=== PATIENT | female | born 1970 | race Hispanic/Latino ===

== ENCOUNTER 2021-09-07 23:02 | Emergency (ER) | payer OTHER, SELFPAY ==
[2021-09-07 23:05] VITALS: BP 155/94; PULSE 98; RESP 20; TEMP 36.5; O2SAT 98
[2021-09-08 02:37] VITALS: BP 133/85; PULSE 79; TEMP 36.5; O2SAT 97
--- NOTE | 2021-09-08 05:36 | ED.LOWEXIN ---
HPI - Extremity Injury (Lower) General Chief Complaint: Extremity Injury, Lower Stated Complaint: bilateral knee, foot pain Time Seen by Provider: 09/08/21 04:10 History of Present Illness HPI Narrative: Patient is a 50-year-old female who presents ER with bilateral knee pain. Ongoing for 2 years. It is worse when she is walking on at work. She has been on meloxicam and other anti-inflammatories. They help but do not fully take away her pain. She has had x-rays in the past that showed no issues. No fevers or chills or sweats. No redness or swelling. No recent trauma. No numbness or tingling to lower extremities. Review of Systems Constitutional: Constitutional: Denies chills and Denies fever(s) Musculoskeletal: Musculoskeletal: Denies myalgias, Reports arthralgias, Denies joint swelling and Denies muscle cramps Neurologic: Denies focal weakness and Denies numbness PMFSH Past Medical History Medical History (Updated 09/08/21 @ 19:51 by Harshad Pittman MD) Healthy female adult Surgical History Surgical History (Updated 09/08/21 @ 19:51 by Harshad Pittman MD) No pertinent past surgical history Exam Narrative: GENERAL: Well-appearing, well-nourished, and in no acute distress. HEAD: Normocephalic, atraumatic.. EXTREMITIES: Normal range of motion. No edema. No joint effusion. No tenderness to the knees bilaterally. No tenderness of the C. SKIN: Warm, dry, no rash. NEURO: No focal deficits. Alert and oriented x3. PSYCH: Normal mood and affect. Course Course Emergency Course: Not much else to offer given patient's head previous imaging with no new changes in her discomfort with an normal exam. Recommend follow-up with Ortho as they may be able provide her steroid injections of the joint space for her chronic pain. Vital Signs Vital signs: Vital Signs Temperature 97.7 F 09/07/21 23:05 Pulse Rate 98 09/07/21 23:05 Respiratory Rate 20 09/07/21 23:05 Blood Pressure 155/94 H 09/07/21 23:05 Pulse Oximetry 98 09/07/21 23:05 Oxygen Delivery Room Air 09/07/21 23:05 Temperature 97.7 F 09/08/21 02:37 Pulse Rate 79 09/08/21 05:55 Respiratory Rate 18 09/08/21 05:55 Blood Pressure 148/91 H 09/08/21 05:55 Pulse Oximetry 98 09/08/21 05:55 Oxygen Delivery Room Air 09/07/21 23:05 Discharge Plan Discharge Clinical Impression: Chronic knee pain Patient Disposition: Home, Self-Care Condition: Stable Instructions: Knee Pain (ED) Additional Instructions: Return to the ER if your knee is red and hot, you have fever over 100.4 ?F, you have chest pain or shortness of breath, you have additional concerns. Follow-up with orthopedic surgery for further evaluation to see if she may benefit from joint injections. Follow-up/Referrals: Greg,Nicole Abebe MD [Primary Care Provider] - Robert Witt MD [Physician] - 1 Week
[2021-09-08 05:55] VITALS: BP 148/91; PULSE 79; RESP 18; O2SAT 98
== END 2021-09-08 05:56 | disposition home or self-care (01) ==
PROVIDERS: Emergency Provider Emergency Medicine; PCP Internal Medicine
DX: M25.562 Pain in left knee (principal); M25.561 Pain in right knee; G89.29 Other chronic pain
CPT/HCPCS: 99281

== ENCOUNTER 2022-03-25 15:04 | Outpatient (CLI) | payer OTHER, SELFPAY ==
--- NOTE | ~2022-03-25 | XR_ITS ---
EXAMINATION: XR foot RT min 3V, XR foot LT min 3V DATE: 03/25/2022 15:38 INDICATION: Plantar fascial fibromatosis TECHNIQUE: 1. Weight bearing dorsoplantar, two oblique and lateral views of the left foot were obtained. 2. Weightbearing dorsoplantar, two oblique and lateral views of the right foot were obtained. COMPARISON: None. FINDINGS: Normal alignment at the bilateral feet. No fracture. Relatively symmetric mild polyarticular osteoart hritis at the tarsal metatarsal, metatarsophalangeal and interphalangeal joints. No erosions to sugge st inflammatory arthritis. Soft tissues are unremarkable. IMPRESSION: 1. Mild polyarticular osteoarthritis in the bilateral mid and forefeet. Reviewed, dictated and finalized at location B. RVISOR PAINT IMPRESSION: 1. Mild polyarticular osteoarthritis in the bilateral mid and forefeet.
== END 2022-03-25 15:05 | disposition home or self-care (01) ==
LOC: ANHIMG 15:09
PROVIDERS: PCP Emergency Medicine; Visit Provider Podiatrist Foot & Ankle Surgery
DX: M72.2 Plantar fascial fibromatosis (principal); E11.40 Type 2 diabetes mellitus with diabetic neuropathy, unspecified; M19.072 Primary osteoarthritis, left ankle and foot; M19.071 Primary osteoarthritis, right ankle and foot
CPT/HCPCS: 73630

== ENCOUNTER 2022-06-28 20:19 | Observation (INO) | payer OTHER, SELFPAY ==
--- NOTE | ~2022-06-28 | XR_ITS ---
EXAMINATION: XR chest 2V Exam Date/Time: 06/28/2022 20:23 CDT HISTORY: CP, SOB, DIZZINESS, WEAKNESS Comparison: None available. RESULT: Lines, tubes, and devices: None. Lungs and pleura: Clear. Cardiomediastinal silhouette: Dilated central pulmonary arteries as can be seen with pulmonary arter ial hypertension. Otherwise normal cardiomediastinal silhouette. Other: No acute osseous or upper abdominal finding. IMPRESSION: No acute cardiopulmonary process. Reviewed, dictated and finalized at location K.
--- NOTE | ~2022-06-28 | US_ITS ---
EXAMINATION: US abdomen limited DATE: 06/29/2022 14:47 INDICATION: Abnormal liver function tests. TECHNIQUE: Multiple grayscale and Doppler ultrasound images of the abdomen were obtained. COMPARISON: CT abdomen 03/08/2007 FINDINGS: The visualized portions of the head, body, and tail of the pancreas are normal. The liver i s normal without focal lesion. No liver surface nodularity. There is normal flow in main portal vein. The gallbladder is normal in size. No gallstones or gallbladder wall thickening. There is no sonogra phic Warren sign. The common duct is normal and measures 5 mm. IMPRESSION: 1. Normal right upper quadrant ultrasound. Reviewed, dictated and finalized at location A.
--- NOTE | ~2022-06-28 | NM_ITS ---
EXAMINATION: NM lora stress w perfusion DATE: 06/29/2022 13:06 INDICATION: Chest pain. TECHNIQUE: Rest images were obtained following intravenous administration of 10.4 mCi Tc99m tetrofosm in (Myoview). The patient was infused intravenously with Lexiscan (regadenoson). Then, 34.6 mCi Tc99m tetrofosmin (Myoview) was administered intravenously, and stress images were obtained. Data was nikos nstructed into short axis and horizontal and vertical long axis SPECT images. Gated SPECT images were also obtained. COMPARISON: None. FINDINGS: There is no definite reversible or fixed perfusion abnormality to suggest ischemia or infar ction. There is no segmental wall motion abnormality. Left ventricular ejection fraction measures > 70%. IMPRESSION: 1. No definite ischemia or infarct. 2. Normal left ventricular ejection fraction measuring >70%. Reviewed, dictated and finalized at location A.
[2022-06-28 20:16] VITALS: BP 137/87; PULSE 106; RESP 12; TEMP 36.6; O2SAT 99
--- NOTE | 2022-06-28 20:21 | ECG_ITS ---
Measurements Intervals [place] Rate: 98 P: 52 OR: 182 QRS: 45 QRSD: 88 T: 94 QT: 286 QTc: 366 Interpretive Statements SINUS RHYTHM NONSPECIFIC ST & T-WAVE ABNORMALITY- DIFFUSE LEADS BASELINE ARTIFACT- I, II, III, AVR, AVL, AVF BORDERLINE ECG NO PREVIOUS ECG AVAILABLE FOR COMPARISON Electronically Signed On 06-28-2022 21:27:17 CDT by Minor Benz D.O.
[2022-06-28 20:30] LABS: Basophils Absolute Auto 0.1 K/mm3 (0.0-0.1); Basophils Percent Auto 1.1 % (0.2-1.2); Eosinophils Absolute Auto 0.1 K/mm3 (0-0.3); Eosinophils Percent Auto 1.3 % (0-4.4); Hematocrit 40.3 % (37.0-47.0); Hemoglobin 14.1 g/dL (12.0-15.0); Immature Granulocyte Absolute 0.03 K/mm3 (0.00-0.031); Immature Granulocyte Percent A 0.4 % (0-0.5); Lymphocytes Absolute Auto 1.85 K/mm3 (0.9-3.2); Lymphocytes Percent Auto 26.5 % (18.3-44.2); Mean Corpuscular Volume 88.6 fl (80-100); Mean Platelet Volume 11.2 fl (7.4-10.4); Monocytes Absolute Auto 0.3 K/mm3 (0.1-0.6); Monocytes Percent Auto 4.6 % (2.6-8.5); Neutrophils Absolute Auto 4.6 K/mm3 (1.3-6.7); Neutrophils Percent Auto 66.1 % (45.5-73.1); Platelet Count Result 194 k/mm3 (150-375); Red Blood Count 4.55 M/mm3 (4.2-5.4); Red Cell Distribution Width 11.7 % (11.5-14.5)
[2022-06-28 20:40] LABS: Prothrombin Time 13.2 Seconds (11.1-14.7)
[2022-06-28 20:41] LABS: Alanine Aminotransferase 37 U/L (6-35); Albumin Level 5.5 g/dL (3.5-5.1); Alkaline Phosphatase 107 U/L (38-126); Anion Gap 10 mmol/L (8-16); Aspartate Amino Transferase 45 U/L (14-36); Bilirubin,Total 0.9 mg/dL (0.2-1.3); Blood Urea Nitrogen 16 mg/dL (7-17); Calcium 9.7 mg/dL (8.4-10.2); Carbon Dioxide 29 mmol/L (22-30); Chloride 98 mmol/L (98-107); Estimated CRCL calculation 79 ml/min; Estimated Glomerular Filt Rate > 60; Glucose 232 mg/dL (65-110); Lipase 131 U/L (23-300); Partial Thromboplastin Time 27.6 SECONDS (22.3-36.8); Potassium 3.2 mmol/L (3.4-5.0); Sodium 137 mmol/L (137-145)
[2022-06-28 20:53] LABS: Troponin I < 0.012 ng/mL (0.000-0.034)
[2022-06-28 21:27] LABS: D Dimer < 0.27 ug/mL (<0.48)
[2022-06-28 22:01] VITALS: BP 114/73; PULSE 92; RESP 19; O2SAT 96
--- NOTE | 2022-06-28 22:03 | PC.NURSE ---
Patient states chest pain has resolved.
--- NOTE | 2022-06-28 22:06 | ED.CHESTPAIN ---
HPI - Chest Pain General Chief Complaint: Chest Pain <Humza Frye PA-C - Last Filed: 06/29/22 02:45> Stated Complaint: CP, HTN, SALEEM <TERRENCE Youssef Last Filed: 06/29/22 02:45> Time Seen by Provider: 06/28/22 20:45 <TERRENCE Youssef Last Filed: 06/29/22 02:45> Source: patient <TERRENCE Youssef Last Filed: 06/29/22 02:45> Mode of arrival: ambulatory <TERRENCE Youssef Last Filed: 06/29/22 02:45> Limitations: no limitations <TERRENCE Youssef Last Filed: 06/29/22 02:45> History of Present Illness HPI narrative: This is a 51-year-old female with PMH of HTN, DM type II who presents to the ED with chief complaint of severe chest pain onset suddenly this afternoon while at work. 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 States the pain is in the central chest and makes clenched fist when describing the pressure. States pain does not radiate. Denies nausea or sweats. Endorses some shortness of breath during onset but none now. Reports pain was a 10 out of 10 but now is a 3 out of 10. Per EMS, she was having elevated pressures in the 200s, received 324 of aspirin and 2 rounds of nitro and still had some elevated pressures above 180. States her chest pain largely resolved after the second nitro in the ambulance. <TERRENCE Youssef Last Filed: 06/29/22 02:45> Related Data Home Medications: Home Medications Medication Instructions Recorded Confirmed amitriptyline 25 mg tablet 25 mg PO HS 06/29/22 06/29/22 atorvastatin 40 mg tablet 40 mg PO DAILY 06/29/22 06/29/22 carvedilol 3.125 mg tablet 3.125 mg PO BID 06/29/22 06/29/22 irbesartan 300 mg tablet 300 mg PO DAILY 06/29/22 06/29/22 levothyroxine 112 mcg tablet 112 mcg PO DAILY 06/29/22 06/29/22 metformin 500 mg tablet,extended 500 mg PO DAILY PRN Hyperglycemia 06/29/22 06/29/22 release 24 hr sitagliptin phosphate 100 mg 100 mg PO DAILY 06/29/22 06/29/22 tablet (Januvia) <Humza Frye PA-C - Last Filed: 06/29/22 02:45> Allergies/Adverse Reactions: Allergies Allergy/AdvReac Type Severity Reaction Status Date / Time No Known Allergies Allergy Unknown Unverified 09/13/21 16:26 <Humza Frye PA-C - Last Filed: 06/29/22 02:45> Review of Systems Review of Systems: CONSTITUTIONAL: Denies fever, chills, or sweats. EYES: Denies visual changes, redness, or discharge. ENT: Denies rhinorrhea, congestion, sore throat, or otalgia. CARDIOVASCULAR: See HPI RESPIRATORY: See HPI GASTROINTESTINAL: Denies abdominal pain, nausea, vomiting, or diarrhea. GENITOURINARY: Denies dysuria or hematuria. SKIN: Denies rash or itching. MUSCULOSKELETAL: Denies back pain, joint pain, or myalgia. NEUROLOGIC: Denies headache, numbness, dizziness, or weakness. PSYCHIATRIC: Denies anxiety or depression. <Humza Frye PA-C - Last Filed: 06/29/22 02:45> [facility] Past Medical History Medical History: Medical History (Updated 06/29/22 @ 00:46 by Humza Frye PA-C) Healthy female adult <Humza Frye PA-C - Last Filed: 06/29/22 02:45> Surgical History Surgical History: Surgical History (System 09/13/21 @ 16:26 by Arnol Rios) No pertinent past surgical history <Humza Frye PA-C - Last Filed: 06/29/22 02:45> Social History Social History: Social History (System 09/13/21 @ 16:26 by Arnol Rios) Smoking status: Never smoker Second hand tobacco smoke exposure: No Alcohol intake: never Substance use: never Lack of Transportation: No Lack of Food: Never True Current Housing: I Have Housing Concerned About Future Housing: No Difficulty Paying Gas/Electric Bills: No Difficulty Paying for Meds: No Currently Unemployed: No Education: High School Diploma/GED Difficulty w/ Childcare or Family Care: No Spiritual care concerns: No <Humza Frye PA-C - Last Filed: 06/29/22 02:45> Exam Narrative: GENERAL: Well-appearing, well-nourished. Appears anxious. No clari
[2022-06-28 23:30] VITALS: BP 139/89; PULSE 79; RESP 14; O2SAT 99
[2022-06-29] VITALS (12 sets, daily range): BP systolic 121–175; BP diastolic 68–79; PULSE 72–96; RESP 16–18; TEMP 36.3–36.5; O2SAT 97–100; BMI 27.8
--- NOTE | 2022-06-29 | EST_ITS ---
Patient Info Name: Mohini Mcclelland Age: 51 years : 1970 Gender: Female Ht: 60 in Wt: 140 lbs BSA: 1.66 m2 HR: 89 bpm BP: 134 / 82 mmHg Heart Rhythm: Sinus Rhythm Exam Date: 06/29/2022 11:59 AM Exam Location: [facility] Stress Patient Status: Inpatient Admit Date: 06/29/2022 Staff Ordering Physician: Yvan Smith MD Attending Provider: Reyes Lamar M.A., MD Exercise Technologist: Xi Alvarado CT Exercise Physician: Yvan Smith MD Exam Type: CA stress lora w NM Study Info Indications R07.89 - Other chest pain A regadenoson stress test was performed. Summary 1. Non-diagnostic ECG response due to resting abnormalities. 2. Please correlate with nuclear medicine images, reported separately. Protocol: Lexiscan Stress ECG Details Stage: REST Duration (min): 0 min : 58 sec HR (bpm): 88 SBP (mmHg): 134 DBP (mmHg): 82 Stage: REST Duration (min): 3 min : 14 sec HR (bpm): 91 SBP (mmHg): 134 DBP (mmHg): 82 Stage: STAGE 1 Duration (min): 1 min : 0 sec HR (bpm): 126 SBP (mmHg): 137 DBP (mmHg): 96 Stage: RECOVERY Duration (min): 1 min : 0 sec HR (bpm): 124 SBP (mmHg): 137 DBP (mmHg): 96 Stage: RECOVERY Duration (min): 2 min : 0 sec HR (bpm): 115 SBP (mmHg): 137 DBP (mmHg): 96 Stage: RECOVERY Duration (min): 3 min : 0 sec HR (bpm): 109 SBP (mmHg): 137 DBP (mmHg): 78 Stage: RECOVERY Duration (min): 3 min : 14 sec HR (bpm): 111 SBP (mmHg): 137 DBP (mmHg): 78 Rest HR: 91 bpm Peak HR: 127 bpm Rest Sys BP: 134 mmHg Peak Sys BP: 137 mmHg Max Pred HR: 170 bpm % Max Pred HR: 75 % Target HR: 145 bpm Max RPP: 17,399 bpm*mmHg Total Time: 1 min : 0 sec Rest Brooks BP: 82 mmHg Peak Brooks BP: 96 mmHg Total Dose: 0.4 mg Resting ECG Sinus rhythm. Baseline nonspecific ST and T wave abnormality. Stress ECG Sinus tachycardia. Non-diagnostic ECG response due to resting abnormalities. Report Signatures
[2022-06-29 00:26] LABS: Troponin I < 0.012 ng/mL (0.000-0.034)
--- NOTE | 2022-06-29 00:42 | PM.IMHP ---
H&P: HPI History of Present Illness Date/Time: 06/29/22 00:42 Chief Complaint: 51 years old female with past medical history of hyperlipidemia hypertension diabetes mellitus presented to the hospital with chest pressure started today no radiation in the center of the chest improved with aspirin and 2 rounds of nitro associated with elevated blood pressure patient was brought to the hospital by her blood pressure was above 200 systolic improved to 180 after 2 rounds of sublingual nitro patient still complaining of mild chest pressure ECG showed nonspecific changes troponin was normal chest x-ray was normal patient has been mildly abnormal LFT has hypokalemia admitted to the hospital for further evaluation and treatment of hypertensive urgency associated with chest pain Review of Systems Review of Systems: Twelve system review was done negative except above [facility] Past Medical History Medical History (Updated 06/29/22 @ 00:46 by Humza Frye PA-C) Healthy female adult Surgical History Surgical History (System 09/13/21 @ 16:26 by Arnol Rios) No pertinent past surgical history Meds Home Medications and Allergies Allergies Allergy/AdvReac Type Severity Reaction Status Date / Time No Known Allergies Allergy Unknown Unverified 09/13/21 16:26 Vital Signs Vital Signs - 24 hr 06/28/22 20:16 06/28/22 22:01 Temperature 97.9 F Pulse Rate 106 H 92 Respiratory Rate 12 19 Blood Pressure 137/87 114/73 Pulse Oximetry 99 96 Oxygen Delivery Room Air Exam Narrative: GENERAL: Well appearing, well-nourished, non-toxic, in no acute distress. HEAD: Normocephalic, atraumatic. NECK: Supple. No adenopathy, no masses. RESPIRATORY: Airway patent, respirations nonlabored. Clear to auscultation bilaterally, no rales, rhonchi, wheezing. CARDIOVASCULAR: Regular rate and rhythm without murmurs, rubs, or gallops. Peripheral pulses 2+ and equal bilaterally. ABDOMINAL: Soft, nontender, nondistended, no hepatosplenomegaly. Normoactive BS. MUSCULOSKELETAL: Moves all extremities. Strength/ROM intact without gross deformities or TTP. No edema. No calf tenderness. No chest wall tenderness palpation. SKIN: Warm, dry, normal color. No rashes. NEURO: A&O X3. Speech clear. Cranial nerves II-XII grossly intact. Steady gait. No ataxic movements. PSYCHIATRIC: Appropriate mood and affect. Normal interaction. H&P: Results Labs Labs: Short CBC 06/28/22 Range/Units 20:24 WBC 7.0 (4.5-10.0) K/mm3 Hgb 14.1 (12.0-15.0) g/dL Hct 40.3 (37.0-47.0) % Plt Count 194 (150-375) k/mm3 BMP 06/28/22 20:24 Sodium 137 Potassium 3.2 L Chloride 98 Carbon Dioxide 29 BUN 16 Creatinine 0.60 L Glucose 232 H Calcium 9.7 Cardiac Enzymes 06/28/22 06/28/22 Range/Units 20:24 23:59 Troponin I < 0.012 < 0.012 (0.000-0.034) ng/mL Liver Function 06/28/22 Range/Units 20:24 Total Bilirubin 0.9 (0.2-1.3) mg/dL AST 45 H (14-36) U/L ALT 37 H (6-35) U/L Alkaline Phosphatase 107 (38-126) U/L Albumin 5.5 H (3.5-5.1) g/dL Assessment and Plan Assessment and plan (1) Chest pain: Code(s): R07.9 - Chest pain, unspecified Status: Acute Assessment and Plan: Rule out ACS serial cardiac marker ECG cardiology consult Aspirin Coreg nitro paste 1 dose of therapeutic Lovenox Pending cardiology evaluation in a.m. reorder to continue Lovenox if needed once cardiology evaluated the patient (2) Hypertensive urgency: Code(s): I16.0 - Hypertensive urgency Status: Acute Assessment and Plan: Status post sublingual nitro Added Coreg nitro paste and p.r.n. IV hydralazine (3) Acute hypokalemia: Code(s): E87.6 - Hypokalemia Status: Acute Assessment and Plan: Replaced (4) Diabetes mellitus: Code(s): E11.9 - Type 2 diabetes mellitus without complications Status: Acute Assessment and Plan: Insulin sliding scale Pending
[2022-06-29] MEDS: POTASSIUM CHLORIDE 20 MEQ TABLET 40 MEQ PO (01:15)
[2022-06-29] MEDS: ENOXAPARIN 80 MG/0.8 ML SYRINGE 63 MG SUB-Q (01:16)
[2022-06-29 03:35] LABS: Troponin I < 0.012 ng/mL (0.000-0.034)
--- NOTE | 2022-06-29 03:44 | ADMGEN ---
This patient, Mohini Mcclelland, was admitted to IMU Room 201-01. Patient/family oriented to hospital policies and general routines including ID bracelet, bed and alarms, visiting hours, pain management, procedures, bathroom and other care routines, personal items, smoking policy, room service/diet, and visiting hours. Information on how to activate the Rapid Response Team has been discussed. Patient/Family are encouraged to report perceived risks to care and to ask questions if they do not understand what they are told or what they should do.
[2022-06-29 05:16] LABS: Basophils Absolute Auto 0.1 K/mm3 (0.0-0.1); Basophils Percent Auto 0.9 % (0.2-1.2); Eosinophils Absolute Auto 0.1 K/mm3 (0-0.3); Hematocrit 37.8 % (37.0-47.0); Immature Granulocyte Absolute 0.01 K/mm3 (0.00-0.031); Immature Granulocyte Percent A 0.1 % (0-0.5); Lymphocytes Absolute Auto 2.11 K/mm3 (0.9-3.2); Mean Corpuscular HGB Conc 34.4 g/dl (32-36); Mean Corpuscular Hemoglobin 30.4 pg (26-34); Mean Corpuscular Volume 88.3 fl (80-100); Monocytes Absolute Auto 0.4 K/mm3 (0.1-0.6); Monocytes Percent Auto 5.9 % (2.6-8.5); Neutrophils Absolute Auto 4.2 K/mm3 (1.3-6.7); Neutrophils Percent Auto 61.1 % (45.5-73.1); Platelet Count Result 187 k/mm3 (150-375); Red Blood Count 4.28 M/mm3 (4.2-5.4); Red Cell Distribution Width 11.6 % (11.5-14.5); White Blood Count 6.8 K/mm3 (4.5-10.0)
[2022-06-29 05:21] LABS: Alanine Aminotransferase 32 U/L (6-35); Alkaline Phosphatase 81 U/L (38-126); Anion Gap 8 mmol/L (8-16); Aspartate Amino Transferase 37 U/L (14-36); Bilirubin,Total 0.7 mg/dL (0.2-1.3); Blood Urea Nitrogen 14 mg/dL (7-17); Calcium 9.5 mg/dL (8.4-10.2); Carbon Dioxide 31 mmol/L (22-30); Chloride 102 mmol/L (98-107); Estimated CRCL calculation 94 ml/min; Estimated Glomerular Filt Rate > 60; Glucose 97 mg/dL (65-110); Potassium 3.3 mmol/L (3.4-5.0); Sodium 141 mmol/L (137-145)
[2022-06-29 05:34] LABS: Troponin I < 0.012 ng/mL (0.000-0.034)
[2022-06-29] MEDS: hydrALAZINE HCL 20 MG/ML VIAL 10 MG IV PUSH (06:16)
--- NOTE | 2022-06-29 09:09 | PM.CNCAR ---
Assessment and Plan Assessment and plan (1) Chest pain: Code(s): R07.9 - Chest pain, unspecified Status: Acute Plan 51-year-old female with chest pain that is raising concern regarding ischemic heart disease although there is no objective evidence of ACS despite prolonged episode of symptoms yesterday. Risk factors obviously include hypertension diabetes and dyslipidemia. She has nonspecific T-wave abnormality on her ECG but no significant ischemic findings. Given her negative troponins I would recommend a Lexiscan nuclear stress testing in terms of screening for ischemic heart disease. Those findings will be reviewed later in the day when the test is completed. Obviously significant abnormality will likely triggered angiogram regardless it seems relatively clear that that symptoms with which she presented are unlikely to be ischemic in nature given the fact that she has negative troponins in the face of prolonged symptomatology Yvan Smith MD [facility] History of Present Illness History of Present Illness Consult date/time: 06/29/22 09:09 Reason For Visit: High Risk Chest Pain Narrative: This is a 51-year-old woman I am seeing at the request of the hospitalist because of chest pain. She is unknown to me prior to this encounter. 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 She describes these episodes a something that does bother her from time to time for least a couple of years or so. She attributes this to high blood pressure. She states that when she has the symptoms if she checks her blood pressure will be significantly elevated. She has a diagnosis of chronic hypertension for which she takes medical therapy. When she is not having the symptoms she says she does not have any history of exertional chest pain shortness of breath orthopnea PND or edema. She does carry on a very active lifestyle. She used to exercise for fitness but has had to curtail this activity in the last year or so because of foot pain with plantar fasciitis. She had the symptoms yesterday was brought to the emergency room her electrocardiogram shows sinus rhythm with nonspecific T-wave inversion. She has had 4 troponins samples done which are all normal. Upon walking in the room to see her this morning she is resting in upon awakening feels relatively well she still is having mild discomfort of a much better than it was yesterday morning. In addition to hypertension she has a history of non insulin-dependent diabetes and a history of hypothyroidism. There is no family history of premature coronary artery disease and she is a nonsmoker Review of Systems Constitutional: Constitutional: Reports body ache(s) Eyes: Eyes: Reports no additional eye complaints ENT: Reports system reviewed and no additional complaints, except as documented Cardiovascular: Cardiovascular: Reports as per HPI Respiratory: Respiratory: Reports no additional respiratory complaints Gastrointestinal: Gastrointestinal: Reports no additional gastrointestinal complaints Musculoskeletal: Musculoskeletal: Reports myalgias Integumentary/Breasts: Skin/Breast: Reports system reviewed and no additional complaints, except as docu Neurologic: Reports system reviewed and no additional complaints, except as documented Endocrine: Endocrine: Reports no additional endocrine complaints Hematologic/Lymphatic: Hematologic/Lymphatic: Reports no additional hematologic/lymphatic complaints Allergic/Immunologic: Allergic/Immunologic: Reports no additional allergic/immunologic complaints [facility] Past Medical History Medical History (Updated 06/29/22 @ 00:46 by Humza Frye PA-C) Healthy female adult Surgical History Surgical History (System 09/13/21 @ 16:26 by Arnol Rios) No pertinent past surgical history Social History Social History (System
[2022-06-29] MEDS: IRBESARTAN 150 MG TABLET 300 MG PO (10:20)
[2022-06-29] MEDS: ASPIRIN 81 MG ENTERIC TABLET PO (10:21)
[2022-06-29] MEDS: SIMVASTATIN 20 MG TABLET 40 MG PO (10:21)
[2022-06-29] MEDS: carvediloL 3.125 MG TABLET PO (10:22)
[2022-06-29] MEDS: NITROGLYCERIN OINTMENT 1 INCH DOSE TRANSDERM (10:22)
[2022-06-29] MEDS: PANTOPRAZOLE SODIUM IV 40 MG VIAL IV PUSH (10:23)
--- NOTE | 2022-06-29 15:26 | PM.DS ---
DS: Admitting Diagnosis Discharge Date 06/29/22 Admitting Diagnosis chest pain DS: Discharge Diagnosis Discharge Diagnosis (1) Chest pain: Code(s): R07.9 - Chest pain, unspecified Status: Acute Assessment and Plan: Rule out ACS serial cardiac marker ECG cardiology consult Aspirin Coreg nitro paste 1 dose of therapeutic Lovenox Pending cardiology evaluation in a.m. reorder to continue Lovenox if needed once cardiology evaluated the patient (2) Hypertensive urgency: Code(s): I16.0 - Hypertensive urgency Status: Acute Assessment and Plan: Status post sublingual nitro Added Coreg nitro paste and p.r.n. IV hydralazine (3) Acute hypokalemia: Code(s): E87.6 - Hypokalemia Status: Acute Assessment and Plan: Replaced (4) Diabetes mellitus: Code(s): E11.9 - Type 2 diabetes mellitus without complications Status: Acute Assessment and Plan: Insulin sliding scale Pending home medication reconciliation (5) Hyperlipidemia: Code(s): E78.5 - Hyperlipidemia, unspecified Status: Acute Assessment and Plan: High-dose statin Check lipid panel DS: Summary Hospital Course Hospital Course: 51-year-old female with chest pain that is raising concern regarding ischemic heart disease although there is no objective evidence of ACS despite prolonged episode of symptoms yesterday.? Risk factors obviously include hypertension diabetes and dyslipidemia.? She has nonspecific T-wave abnormality on her ECG but no significant ischemic findings.? Given her negative troponins lexiscan nuclear stress testing was performed and was negative for ischemia. Etiology of her symptoms with thought to be secondary to GERD versus musculoskeletal etiology. She is to discuss this with her family doctor. She was discharged in stable condition with close outpatient follow-up by Cardiology. Time Spent with Patient Time attestation: Total time spent providing and/or coordinating discharge services: DS: Data Data Completed and Pending Labs on day of discharge: Labs from last 24 hours 06/29/22 06/29/22 06/28/22 04:42 03:07 23:59 WBC 6.8 RBC 4.28 Hgb 13.0 Hct 37.8 MCV 88.3 MCH 30.4 MCHC 34.4 RDW 11.6 Plt Count 187 MPV 12.0 H Immature Gran % (Auto) 0.1 Neut % (Auto) 61.1 Lymph % (Auto) 31.0 [place] % (Auto) 5.9 Eos % (Auto) 1.0 Baso % (Auto) 0.9 Lymph # (Auto) 2.11 [place] # (Auto) 0.4 Eos # (Auto) 0.1 Baso # (Auto) 0.1 Abs Immat Gran (auto) 0.01 Absolute Neuts (auto) 4.2 Absolute Nucleated RBC 0.0 Nucleated RBC % 0.0 PT INR APTT D-Dimer Sodium 141 Potassium 3.3 L Chloride 102 Carbon Dioxide 31 H Anion Gap 8 BUN 14 Creatinine 0.50 L Estim Creat Clear Calc 94 Estimated GFR > 60 Glucose 97 Calcium 9.5 Total Bilirubin 0.7 AST 37 H ALT 32 Alkaline Phosphatase 81 Troponin I < 0.012 < 0.012 < 0.012 Total Protein 8.0 Albumin 5.0 Lipase TSH (Reflex) 1.520 06/28/22 20:24 WBC 7.0 RBC 4.55 Hgb 14.1 Hct 40.3 MCV 88.6 MCH 31.0 MCHC 35.0 RDW 11.7 Plt Count 194 MPV 11.2 H Immature Gran % (Auto) 0.4 Neut % (Auto) 66.1 Lymph % (Auto) 26.5 [place] % (Auto) 4.6 Eos % (Auto) 1.3 Baso % (Auto) 1.1 Lymph # (Auto) 1.85 [place] # (Auto) 0.3 Eos # (Auto) 0.1 Baso # (Auto) 0.1 Abs Immat Gran (auto) 0.03 Absolute Neuts (auto) 4.6 Absolute Nucleated RBC 0.0 Nucleated RBC % 0.0 PT 13.2 INR 1.0 APTT 27.6 D-Dimer < 0.27 Sodium 137 Potassium 3.2 L Chloride 98 Carbon Dioxide 29 Anion Gap 10 BUN 16 Creatinine 0.60 L Estim Creat Clear Calc 79 Estimated GFR > 60 Glucose 232 H Calcium 9.7 Total Bilirubin 0.9 AST 45 H ALT 37 H Alkaline Phosphatase 107 Troponin I < 0.012 Total Protein 8.0 Albumin 5.5 H Lipase 131 TSH (Reflex) Discharge Plan Discharge A
[2022-06-29] MEDS: ACETAMINOPHEN 325 MG TABLET 650 MG PO (16:01)
== END 2022-06-29 16:20 | disposition home or self-care (01) ==
LOC: ANHED 06-29 00:46 → ANHIMU 06-29 03:12
PROVIDERS: Emergency Medicine; Admitting Provider Internal Medicine; Emergency Provider Physician Assistant; PCP Physician Assistant; Visit Provider Student in an Organized Health Care Education/Training Program
DX: I16.0 Hypertensive urgency (principal); E87.6 Hypokalemia; E11.9 Type 2 diabetes mellitus without complications; E78.5 Hyperlipidemia, unspecified; I10 Essential (primary) hypertension; R79.89 Other specified abnormal findings of blood chemistry; R94.31 Abnormal electrocardiogram [ECG] [EKG]; R53.1 Weakness; Z79.84 Long term (current) use of oral hypoglycemic drugs; Z79.899 Other long term (current) drug therapy
CPT/HCPCS: 36415; 71046; 76705; 78452; 80053; 83690; 84443; 84484; 85025; 85380; 85610; 85730; 93005; 93017; 96374; 96375; 99285; A9270; A9502; C9113; G0378; J0360; J1650

== ENCOUNTER 2022-11-30 21:20 | Emergency (ER) | payer OTHER, SELFPAY ==
--- NOTE | ~2022-11-30 | CT_ITS ---
CT of the Abdomen and Pelvis: Indication: Abdominal pain Technique: 2.5 mm axial scans were obtained through the abdomen and pelvis following intravenous adm inistration of 100 cc of Omnipaque 350. Dose reduction technique was used on this scan by utilizing a utomated exposure control and iterative reconstruction technique. The dose-length product (DLP) was 3 48.25 mGy-cm. Findings: Scans through the lung bases demonstrate 1.1 cm right lower lobe pulmonary nodule (axial i mage 16). 6 mm hypodense hepatic structure is too small to characterize definitively, but statistically, there is most likely a small cyst or hemangioma (axial image 44). The spleen, pancreas, gallbladder, adrena ls and right kidney are within normal limits. Small nonobstructing left renal stones measuring up to 3 mm. No evidence of aortic aneurysm. No retroperitoneal lymphadenopathy. There is wall thickening of the ascending colon with mild pericolonic inflammatory stranding. Appendi x not clearly visualized. Terminal ileum appears relatively unremarkable. No abscess or free air. No bowel obstruction. There are shotty right lower quadrant lymph nodes. Images through the pelvis were performed. Urinary bladder unremarkable. No adnexal mass evident. Impression: Wall thickening and inflammatory change involving the ascending colon, suspicious for infectious/infl ammatory colitis. No abscess, free air, or bowel obstruction. Appendix not clearly visualized. 1.1 cm right lower lobe pulmonary nodule, indeterminate. According to Fleischner Society criteria, wo uld recommend either 3 month follow-up CT, PET/CT, or tissue sampling. Small nonobstructing left renal stones. Reviewed, dictated and finalized at [facility]. Impression: Wall thickening and inflammatory change involving the ascending colon, suspicio us for infectious/inflammatory colitis. No abscess, free air, or bowel obstruct ion. Appendix not clearly visualized. 1.1 cm right lower lobe pulmonary nodule, indeterminate. According to Fleischne r Society criteria, would recommend either 3 month follow-up CT, PET/CT, or tis abhijit sampling. Small nonobstructing left renal stones.
[2022-11-30 21:26] VITALS: BP 167/88; PULSE 118; RESP 16; TEMP 37.7; O2SAT 99
[2022-11-30 22:59] LABS: Basophils Percent Auto 0.7 % (0.2-1.2); Hematocrit 36.9 % (37.0-47.0); Hemoglobin 12.5 g/dL (12.0-15.0); Immature Granulocyte Absolute 0.03 K/mm3 (0.00-0.031); Immature Granulocyte Percent A 0.5 % (0-0.5); Lymphocytes Absolute Auto 0.87 K/mm3 (0.9-3.2); Lymphocytes Percent Auto 15.1 % (18.3-44.2); Mean Corpuscular HGB Conc 33.9 g/dl (32-36); Mean Corpuscular Hemoglobin 30.2 pg (26-34); Mean Corpuscular Volume 89.1 fl (80-100); Mean Platelet Volume 10.8 fl (7.4-10.4); Monocytes Absolute Auto 0.6 K/mm3 (0.1-0.6); Monocytes Percent Auto 10.2 % (2.6-8.5); Neutrophils Absolute Auto 4.3 K/mm3 (1.3-6.7); Neutrophils Percent Auto 73.5 % (45.5-73.1); Platelet Count Result 185 k/mm3 (150-375); Red Blood Count 4.14 M/mm3 (4.2-5.4); Red Cell Distribution Width 12.3 % (11.5-14.5); White Blood Count 5.8 K/mm3 (4.5-10.0)
[2022-11-30 23:13] LABS: Alanine Aminotransferase 51 U/L (6-35); Albumin Level 4.4 g/dL (3.5-5.1); Alkaline Phosphatase 91 U/L (38-126); Anion Gap 10 mmol/L (8-16); Aspartate Amino Transferase 37 U/L (14-36); Bilirubin,Total 0.6 mg/dL (0.2-1.3); Blood Urea Nitrogen 10 mg/dL (7-17); Calcium 8.9 mg/dL (8.4-10.2); Carbon Dioxide 27 mmol/L (22-30); Chloride 99 mmol/L (98-107); Estimated Glomerular Filt Rate > 60; Glucose 190 mg/dL (65-110); Lipase 102 U/L (23-300); Potassium 3.2 mmol/L (3.4-5.0); Sodium 136 mmol/L (137-145)
[2022-11-30 23:13] LABS: Appearance Urine Clear (Clear); Bacteria Urine None Seen /hpf; Bilirubin Urine Negative (Negative); Blood Urine 1+ (Negative); Color Urine Yellow (Yellow); Glucose Urine UA Negative (Negative); Ketones Urine Negative (Negative); Leukocyte Esterase Ur Negative LEU/UL (Negative); Nitrate Urine Negative (Negative); Non Pathogenic Casts 0-2; Protein Urine Negative (Negative); Specific Grav Ur 1.013 (1.001-1.035); Squamous Epithelial Cell Urine None seen /hpf (Few); WBC Urine 0-5 /hpf; pH Urine 6.5 (5.0-9.0)
[2022-11-30 23:33] LABS: Add Urine Microscopic? YES
[2022-11-30 23:55] VITALS: BP 155/76; PULSE 118; RESP 20; TEMP 37.6; O2SAT 98
[2022-12-01] VITALS (31 sets, daily range): BP systolic 129–154; BP diastolic 77–92; PULSE 92–115; RESP 12–20; O2SAT 94–100
[2022-12-01] MEDS: SODIUM CHLORIDE 0.9% IV 2,000 ML 999 ML IV CONT (04:17)
[2022-12-01] MEDS: HYDROmorphone HCL INJ (*CRX) 1 MG/ML SYR 0.5 MG IV PUSH (04:18)
--- NOTE | 2022-12-01 04:57 | PC.NURSE ---
Patient refused respiratory swab-states she had one the other day that was negative. Patient also refused test-states she has had a tubal ligation.
--- NOTE | 2022-12-01 06:51 | ED.GENADULT ---
HPI - General Adult General Chief complaint: Abdominal Pain Stated complaint: body aches, chills, abdominal pain Time Seen by Provider: 12/01/22 03:29 History of Present Illness HPI narrative: This is a 52-year-old female presenting ED with chief complaint of abdominal pain x4 days. Patient states that she has been having right-sided abdominal pain, feels like someone is punching her, nonradiating 9 out 10 intensity and constant. She has never had pain like this for the no exacerbating or relieving symptoms. She is says it is associated with fever and chills and nausea but no vomiting or diarrhea. Patient still has appendix. Patient denies urinary symptoms. Related Data Home Medications Medication Instructions Recorded Confirmed amitriptyline 25 mg tablet 25 mg PO HS 06/29/22 06/29/22 atorvastatin 40 mg tablet 40 mg PO DAILY 06/29/22 06/29/22 carvedilol 3.125 mg tablet 3.125 mg PO BID 06/29/22 06/29/22 irbesartan 300 mg tablet 300 mg PO DAILY 06/29/22 06/29/22 levothyroxine 112 mcg tablet 112 mcg PO DAILY 06/29/22 06/29/22 metformin 500 mg tablet,extended 500 mg PO DAILY PRN Hyperglycemia 06/29/22 06/29/22 release 24 hr sitagliptin phosphate 100 mg 100 mg PO DAILY 06/29/22 06/29/22 tablet (Januvia) Allergies Allergy/AdvReac Type Severity Reaction Status Date / Time No Known Allergies Allergy Unknown Unverified 09/13/21 16:26 [facility] Past Medical History Medical History Healthy female adult Surgical History Surgical History No pertinent past surgical history Social History Social History Smoking status: Never smoker Second hand tobacco smoke exposure: No Alcohol intake: never Substance use: never Lack of Transportation: No Lack of Food: Never True Current Housing: I Have Housing Concerned About Future Housing: No Difficulty Paying Gas/Electric Bills: No Difficulty Paying for Meds: No Currently Unemployed: No Education: High School Diploma/GED Difficulty w/ Childcare or Family Care: No Spiritual care concerns: No Exam Narrative: APPEARANCE: No apparent distress. Head: atraumatic. EYES: EOMI, NOSE: Atraumatic NECK: Trachea midline RESPIRATORY: No increased rate of breathing CTAB CARDIOVASCULAR: RRR, ABDOMINAL: tenderness over the right side of the abdomen without guarding or rebound. MUSCULOSKELETAl: No obvious deformities NEURO: Alert. Moving 4/4 extremities SKIN:: Warm, dry. Normal color PSYCHIATRIC: Normal affect Course Vital Signs Vital signs: Vital Signs Temperature 99.9 F H 11/30/22 21:26 Pulse Rate 118 H 11/30/22 21:26 Respiratory Rate 16 11/30/22 21:26 Blood Pressure 167/88 H 11/30/22 21:26 Pulse Oximetry 99 11/30/22 21:26 Oxygen Delivery Room Air 11/30/22 21:26 Temperature 99.7 F H 11/30/22 23:55 Pulse Rate 92 12/01/22 06:15 Respiratory Rate 19 12/01/22 06:15 Blood Pressure 132/80 12/01/22 06:01 Pulse Oximetry 96 12/01/22 06:15 Oxygen Delivery Room Air 11/30/22 21:26 Medical Decision Making [facility] Narrative Medical decision making narrative: -Course: 52-year-old female presenting with right-sided abdominal pain. CT showed some inflammation of the ascending colon. No inflammation in the terminal ileum or definitive evidence of appendicitis. patient's pain was controlled with pain medication. She is given fluid resuscitation. On reevaluation the patient has mild tenderness on abdominal exam without guarding rebound. Vital signs are stable. Afebrile with no white blood cell count. Patient will be trialed a course of Cipro and Flagyl with return precautions for worsening abdominal pain. Patient is comfortable this plan. -DDX includes but is not limited to: Appendicitis, urinary tract infection, cholecystitis, colitis, gastroenteritis -Co
[2022-12-01] MEDS: metroNIDAZOLE 250 MG TABLET 500 MG PO (07:04)
[2022-12-01] MEDS: CIPROFLOXACIN 500 MG TAB PO (07:04)
[2022-12-01 07:21] LABS: Influenza A QL RT-PCR Negative (Negative); Influenza B QL RT-PCR Negative (Negative); RSV RNA, RT-PCR Negative (Negative); SARS-CoV-2 RNA PCR Negative (Negative)
== END 2022-12-01 07:36 | disposition home or self-care (01) ==
PROVIDERS: Emergency Provider Emergency Medicine; PCP Physician Assistant
DX: K52.9 Noninfective gastroenteritis and colitis, unspecified (principal); Z20.822 Contact with and (suspected) exposure to COVID-19
CPT/HCPCS: 36415; 74177; 80053; 81001; 83690; 85025; 87637; 96361; 96374; 99284; A9270; J1170; J7030; Q9967

== ENCOUNTER 2023-10-05 21:01 | Emergency (ER) | payer OTHER, SELFPAY ==
--- NOTE | ~2023-10-05 | XR_ITS ---
XR chest 2V Ordering provider: Angel Kennedy MD History: 52 years Female with . chest pain X 2 MONTHS INTERMITTENTLY . Comparison: Jun 28 2022 FINDINGS: MEDIASTINUM: The cardiac silhouette is not enlarged. LUNGS: No infiltrates, effusions or pneumothorax. OTHER: No free air under the diaphragm. IMPRESSION: No acute cardiopulmonary pathology. Reviewed, dictated and finalized at location A.
--- NOTE | 2023-10-05 21:03 | ECG_ITS ---
Test Date: 2023-10-05 21:08:29 Measurements Intervals [place] Rate: 81 P: 39 [place]: 170 QRS: 49 QRSD: 89 T: 11 QT: 361 QTc: 420 Interpretive Statements SINUS RHYTHM NONSPECIFIC ST & T-WAVE ABNORMALITY BORDERLINE ECG No previous ECG available for comparison Electronically Signed On 10-06-2023 14:53:35 CDT by Yvan Smith M.D.
[2023-10-05 21:05] VITALS: BP 182/106; PULSE 97; RESP 22; TEMP 36.4; O2SAT 100
[2023-10-05 21:25] VITALS: BP 155/99; PULSE 81; RESP 16; O2SAT 100
[2023-10-05] MEDS: ASPIRIN 81 MG CHEWABLE TABLET 324 MG PO (21:28)
[2023-10-05 21:29] LABS: Basophils Absolute Auto 0.1 K/mm3 (0.0-0.1); Basophils Percent Auto 0.8 % (0.2-1.2); Eosinophils Absolute Auto 0.2 K/mm3 (0-0.3); Eosinophils Percent Auto 2.4 % (0-4.4); Hematocrit 40.9 % (37.0-47.0); Hemoglobin 14.1 g/dL (12.0-15.0); Immature Granulocyte Absolute 0.03 K/mm3 (0.00-0.031); Immature Granulocyte Percent A 0.5 % (0-0.5); Lymphocytes Absolute Auto 2.68 K/mm3 (0.9-3.2); Lymphocytes Percent Auto 40.8 % (18.3-44.2); Mean Corpuscular HGB Conc 34.5 g/dl (32-36); Mean Corpuscular Hemoglobin 30.6 pg (26-34); Mean Corpuscular Volume 88.7 fl (80-100); Mean Platelet Volume 11.2 fl (7.4-10.4); Monocytes Absolute Auto 0.5 K/mm3 (0.1-0.6); Monocytes Percent Auto 7.3 % (2.6-8.5); Neutrophils Absolute Auto 3.2 K/mm3 (1.3-6.7); Neutrophils Percent Auto 48.2 % (45.5-73.1); Platelet Count Result 201 k/mm3 (150-375); Red Blood Count 4.61 M/mm3 (4.2-5.4); Red Cell Distribution Width 11.9 % (11.5-14.5); White Blood Count 6.6 K/mm3 (4.5-10.0)
[2023-10-05 21:31] VITALS: PULSE 87
--- NOTE | 2023-10-05 21:33 | ED.CHESTPAIN ---
HPI - Chest Pain General Chief Complaint: Chest Pain Stated Complaint: hypertension Time Seen by Provider: 10/05/23 21:19 Source: patient Mode of arrival: ambulatory Limitations: no limitations History of Present Illness HPI narrative: This is a 52-year-old female, with previous history of chest pain with a negative Lexiscan stress test in June 2022, who presents to the emergency department with concerns for elevated blood pressure and intermittent episodes of mild dull chest pain for the past month. The patient [place] the [place] 2 [place]. She had intermittent chest pain similar to which she had felt before. She also notes her blood pressure was elevated. Her lisinopril was recently increased to 40 mg daily without significant change. She also complains of some nausea though has no other complaints at this time. Related Data Home Medications Medication Instructions Recorded Confirmed amitriptyline 25 mg tablet 25 mg PO HS 06/29/22 06/29/22 atorvastatin 40 mg tablet 40 mg PO DAILY 06/29/22 06/29/22 carvedilol 3.125 mg tablet 3.125 mg PO BID 06/29/22 06/29/22 irbesartan 300 mg tablet 300 mg PO DAILY 06/29/22 06/29/22 levothyroxine 112 mcg tablet 112 mcg PO DAILY 06/29/22 06/29/22 metformin 500 mg tablet,extended 500 mg PO DAILY PRN Hyperglycemia 06/29/22 06/29/22 release 24 hr sitagliptin phosphate 100 mg 100 mg PO DAILY 06/29/22 06/29/22 tablet (Januvia) Allergies Allergy/AdvReac Type Severity Reaction Status Date / Time No Known Allergies Allergy Unknown Unverified 09/13/21 16:26 Review of Systems Review of Systems: All systems reviewed & are unremarkable except as noted in HPI and below PMFSH Past Medical History Medical History (Updated 10/05/23 @ 22:43 by Angel Kennedy MD) Diabetes mellitus Healthy female adult Hyperlipidemia Surgical History Surgical History No pertinent past surgical history Social History Social History Smoking status: Never smoker Second hand tobacco smoke exposure: No Alcohol intake: never Substance use: never Lack of Transportation: No Lack of Food: Never True Current Housing: I Have Housing Concerned About Future Housing: No Difficulty Paying Gas/Electric Bills: No Difficulty Paying for Meds: No Currently Unemployed: No Education: High School Diploma/GED Difficulty w/ Childcare or Family Care: No Spiritual care concerns: No Exam Narrative: GENERAL: Well-developed, well-nourished, and in no acute distress. HEAD: Normocephalic, atraumatic. EYES: PERRLA and EOMI. CHEST: Clear to auscultation. No respiratory distress. No wheezes rales or rhonchi. Reproducible chest pain with palpation of the anterior left chest wall HEART: Regular rate and rhythm. No murmur heard. Normal peripheral pulses. ABDOMEN: Soft, nontender, nondistended, normal active bowel sounds. EXTREMITIES: Normal range of motion. No edema. SKIN: Warm, dry, no rash. NEURO: Alert and oriented x3. No focal deficit. Moving all 4 limbs spontaneously PSYCH: Normal mood and affect. Course Course Emergency Course: 21:48 - EKG not concerning for ischemia, initial troponin negative. Heart score 3. Given the patient's negative stress test 1 year ago, in the month long duration of her symptoms my suspicion for ACS is decreased at this time. Chest x-ray unremarkable. CBC within normal limits. Chemistries demonstrate mild hyperglycemia with glucose of 126 but is otherwise unremarkable. Influenza, RSV and COVID pending. 22:40 - COVID influenza negative. The patient states her pain continues. Will give Toradol with plan for discharge and outpatient follow-up. I discussed the findings and recommendations with the patient. Discussed return and emergency precautions including signs/symptoms of ACS and respiratory distress. The patient voiced understa
[2023-10-05 21:34] LABS: Alanine Aminotransferase 27 U/L (6-35); Albumin Level 4.9 g/dL (3.5-5.1); Alkaline Phosphatase 122 U/L (38-126); Anion Gap 13 mmol/L (4-12); Aspartate Amino Transferase 31 U/L (14-36); Bilirubin,Total 0.5 mg/dL (0.2-1.3); Blood Urea Nitrogen 16 mg/dL (7-17); Calcium 9.5 mg/dL (8.4-10.2); Carbon Dioxide 26 mmol/L (22-30); Chloride 101 mmol/L (98-107); Estimated CRCL calculation 94 ml/min; Estimated Glomerular Filt Rate > 60; Glucose 126 mg/dL (65-110); Lipase 201 U/L (23-300); Potassium 3.4 mmol/L (3.4-5.0); Sodium 140 mmol/L (137-145)
[2023-10-05 21:37] VITALS: O2SAT 99
[2023-10-05] MEDS: ONDANSETRON INJ 4 MG/2 ML VIAL IV PUSH (21:39)
[2023-10-05] MEDS: SODIUM CHLORIDE 0.9% IV 1,000 ML 999 ML IV CONT (21:39)
[2023-10-05 21:42] LABS: Partial Thromboplastin Time 27.4 Seconds (22.3-36.8)
[2023-10-05 21:46] LABS: Troponin I < 0.012 ng/mL (0.000-0.034)
[2023-10-05 22:20] LABS: Influenza A QL RT-PCR Negative (Negative); Influenza B QL RT-PCR Negative (Negative); RSV RNA, RT-PCR Negative (Negative); SARS-CoV-2 RNA PCR Negative (Negative)
[2023-10-05 22:25] VITALS: BP 139/88; PULSE 71; RESP 18; O2SAT 100
[2023-10-05] MEDS: KETOROLAC 30 MG/ML VIAL (*BKC) IV PUSH (22:42)
== END 2023-10-05 23:01 | disposition home or self-care (01) ==
PROVIDERS: Emergency Provider Preventive Medicine Aerospace Medicine; PCP Physician Assistant
DX: R07.89 Other chest pain (principal); Z20.822 Contact with and (suspected) exposure to COVID-19; E11.9 Type 2 diabetes mellitus without complications; E78.5 Hyperlipidemia, unspecified; Z79.899 Other long term (current) drug therapy; Z79.84 Long term (current) use of oral hypoglycemic drugs; R94.31 Abnormal electrocardiogram [ECG] [EKG]
CPT/HCPCS: 36415; 71046; 80053; 83690; 84484; 85025; 85610; 85730; 87637; 93005; 96361; 96374; 96375; 99284; A9270; J1885; J2405; J7030

== ENCOUNTER 2024-02-23 01:14 | Emergency (ER) | payer OTHER, SELFPAY ==
[2024-02-23 01:33] VITALS: BP 165/95; PULSE 84; RESP 18; TEMP 36.2; O2SAT 99
[2024-02-23 03:38] VITALS: BP 142/81; PULSE 80; RESP 18; O2SAT 97
--- NOTE | 2024-02-23 04:39 | PC.NURSE ---
Pt states they are going to go. Pt left without being seen by provider.
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
--- OUTSIDE RECORDS SUMMARY | 2024-03-01 02:20 | XMS_ITS | CONTINUITY OF CARE DOCUMENT ---
Author Name kaialanamalik Address Unknown Organization [facility] Address [address] [place] [address] Phone [phone] Care Team Providers Care Configuration Management Specialist Name Role Phone Galen VALENTINE, Dayne Unavailable [phone] LEONA GILMORE MD Unavailable LEONA GILMORE MD Unavailable [phone] INSURANCE PROVIDERS Payer name Policy type / Coverage type [place] red republican ID CIGNA [employer] insurance [employer] [id number]
--- OUTSIDE RECORDS SUMMARY | 2024-03-01 02:20 | XMS_ITS | Clinical Summary ---
Author Organization [facility] Address [address] [place] [address]. [place], [place] [id number] [place] [address] Care Team Providers Care Shoe Stitcher Odd Name Role Phone Unavailable Primary Care Provider Unavailabl e Social History Tobacco Use Types Packs/Day Years Used Date Smoking Tobacco: Never Assessed Comments Unknown Sex and Gender Information Value Date Recorded Sex Assigned at Not on file Legal Sex Female 7:56 PM CDT Gender Identity Not on file Sexual Orientation Not on file Last Filed Vital Signs Vital Sign Reading Time Taken Comments Blood Pressure 129/85 11/30/2011 11:09 AM CDT Pulse 85 11/30/2011 11:09 AM CDT Temperature - - Respiratory Rate - - Oxygen Saturation - - Inhaled Oxygen Concentration - - Weight 68 kg (150 lb) 11/30/2011 11:09 AM CDT Height - - Body Mass Index - - Plan of Treatment Health Maintenance Due Date Last Done Comments Cervical Cancer Screening Pa p Smear (Age 30 to 64) Every 3 Years 1971 Colorectal Cancer Screening Colonoscopy (10 Years) 1971 Annual Physical 10/11/1974 Hepatitis C 10/11/1989 DTaP, Tdap and Td Vaccines ( 1 - Tdap) 10/11/1990 Hepatitis B Vaccines (1 of 3 - 19+ 3-dose series) 10/11/1990 Cervical Cancer Screening Pa p with HPV Testing (Age 30 to 64) Every 5 Years 10/11/2001 Cervical Cancer Screening with HPV 10/11/2001 Mammogram Screening 2011 Zoster Vaccines (1 of 2) 10/11/2021 COVID-19 Vaccine (2023-2 5 season) 2023 Influenza Adult (#1) 2023 Meningococcal Vaccine Aged Out No gerard sarwat eligible based on patient's age to complete this topic Pneumococcal Vaccine: Pediat rics (0 to 5 Years) and At-Risk Patients (6 to 64 Years) Aged Out No longer eligible b ased on patient's age to complete this topic RSV Immunizations Under 20 Months Aged Out No longer eligible based on patient's age to complete this topic
--- OUTSIDE RECORDS SUMMARY | 2024-03-01 10:16 | XMS_ITS | CONTINUITY OF CARE DOCUMENT ---
Author Name kaialanamalik Address Unknown Organization [facility] Address [address] [place] [address] Phone [phone] Care Team Providers Care Centralized Traffic Control Operator Name Role Phone Galen VALENTINE, Dayne Unavailable [phone] LEONA GILMORE MD Unavailable [phone] LEONA GILMORE MD Unavailable [phone] INSURANCE PROVIDERS Payer name Policy type / Coverage type [place] red libertarian ID CIGNA [employer] insurance [employer] [id number]
--- OUTSIDE RECORDS SUMMARY | 2024-03-01 10:16 | XMS_ITS | Clinical Summary ---
Author Organization [facility] Address [address] [place] [address]. [place], [place] [id number] [place] [address] Care Team Providers Care Anesthesia Associate Name Role Phone Unavailable Primary Care Provider [...]
--- OUTSIDE RECORDS SUMMARY | 2024-03-01 10:17 | XMS_ITS | Encounter Summary ---
Author Organization [facility] Address [facility] [facility] [place] [address] [place] [address] Care Team Providers Care Support Team Member Name Role Phone Unavailable Primary Care Provider Unavailabl e Encounter Details Date Type Department Care Team (Late st Contact Info) Description 11/30/2011 Abstract [facility] Medical Group Family & Internal Medicine - [address] [phone] Blessing Lanza MD Social History [...] (Thyroid Stim Hormone) Requested for: 30Nov2011 8. Khukcqppez-WBIK-Gnwclzwf 50-325-40 MG Oral Tablet; TAKE 1 TABLET 3 TO 4 TIMES DAILY NEEDED FOR HEADACHE; Therapy: 30Nov2011 to (Evaluate:24Dec2011); Last Rx:30Nov2011 Signatures Electronically signed by : Blessing Lanza M.D.; Nov 30 2011 3:23PM (Author) GROUND MONITOR documented in this encounter Plan of Treatment Not on file documented as of this encounter Visit Diagnoses Not on filedocumented in this encounter
== END 2024-02-23 04:39 | disposition left against medical advice (07) ==
PROVIDERS: PCP Physician Assistant
DX: Z53.21 Procedure and treatment not carried out due to patient leaving prior to being seen by health care provider (principal)
CPT/HCPCS: 99199

== ENCOUNTER 2024-04-22 15:56 | Outpatient (CLI) | payer OTHER, SELFPAY ==
--- NOTE | ~2024-04-22 | XR_ITS ---
EXAM: XR elbow RT min 3V DATE: 04/22/2024 16:18 HISTORY: CHRONIC PAIN RADIATES FROM RIGHT SHOULDER TO ELBOW . COMPARISON: None available. FINDINGS: Normal mineralization. No fracture or dislocation. No lytic or blastic lesion. Joint space s are maintained. Mild medial and lateral enthesopathy. No erosion or periosteal change. Soft tissues within normal limits. IMPRESSION: No acute osseous finding in the right elbow. Reviewed, dictated and finalized at location K. TING EQUIPMENT ENGINEER
--- OUTSIDE RECORDS SUMMARY | 2024-04-22 18:25 | XMS_ITS | Clinical Summary ---
Author Organization [facility] Address [address] [place] [address] Care Team Providers Care General Lot Attendant Name Role Phone Unavailable Primary Care Provider [...] season) 2023 Influenza Adult (#1) 2023 Meningococcal B Vaccine Aged Out No l onger eligible based on patient's age to complete this topic Meningococcal Vaccine Aged Out No gerard sarwat [...]
--- OUTSIDE RECORDS SUMMARY | 2024-04-22 18:25 | XMS_ITS | CONTINUITY OF CARE DOCUMENT ---
Author Name kaialanamalik Address Unknown Organization [facility] Address [address] [place] [address] Phone [phone] Care Team Providers Care Human Services Supervisor Name Role Phone Galen VALENTINE, Dayne Unavailable LEONA GILMORE MD Unavailable [phone] LEONA GILMORE MD Unavailable [phone] INSURANCE PROVIDERS Payer name Policy type / Coverage type [place] red green party ID CIGNA [employer] insurance [employer] [id number]
== END 2024-04-22 15:57 | disposition home or self-care (01) ==
PROVIDERS: PCP Physician Assistant; Visit Provider Physician Assistant Medical
DX: M25.521 Pain in right elbow (principal)
CPT/HCPCS: 73080